=== PATIENT | female | born 1970 | race African-American/Black ===

== ENCOUNTER 2022-03-16 03:44 | Day surgery (SDC) | payer OTHER ==
[2022-03-14 12:25] VITALS: BMI 27.3
[2022-03-16] MEDS ORDERED: DEXAMETHASONE SOD PHOSPHATE 4 MG/1 ML VIAL ONE (07:18)
[2022-03-16] MEDS ORDERED: LIDOCAINE HCL/PF 2% SDV 5ML VIAL ONE (07:18)
[2022-03-16] MEDS ORDERED: ROCURONIUM BROMIDE 50 MG/5 ML SYRINGE ONE (07:19)
[2022-03-16] MEDS ORDERED: PROPOFOL 20 ML ONE (07:19)
[2022-03-16] MEDS ORDERED: MIDAZOLAM HCL 2 MG/2 ML SINGLE DOSE VIAL ONE ×2 (07:19→07:29)
[2022-03-16] MEDS ORDERED: SUCCINYLCHOLINE CHLORIDE 200 MG/10 ML SYRINGE ONE (07:22)
[2022-03-16] MEDS ORDERED: BUPIVACAINE HCL/PF 0.5% (5MG/ML) 10 ML VIAL ONE (07:30)
[2022-03-16] MEDS ORDERED: BUPIVACAINE LIPOSOME/PF (EXPAREL) 266 MG/20 ML VIAL ONE (07:30)
[2022-03-16] MEDS ORDERED: ceFAZolin SODIUM 1 GM VIAL ONE (08:10)
[2022-03-16] MEDS ORDERED: ceFAZolin SODIUM 1 GM VIAL IVPB ONE (08:10)
[2022-03-16] MEDS ORDERED: ONDANSETRON 4 MG/2 ML VIAL IVPUSH PRN ×2 (08:18→09:45)
[2022-03-16] MEDS ORDERED: HYDROmorphone HCl 2 MG/ML VIAL ONE (09:09)
[2022-03-16] MEDS ORDERED: GLYCOPYRROLATE 0.2 MG/1 ML VIAL ONE (09:11)
[2022-03-16] MEDS ORDERED: KETOROLAC TROMETHAMINE 30 MG/1 ML VIAL ONE (09:11)
[2022-03-16] MEDS ORDERED: NEOSTIGMINE METHYLSULFATE 0.5 MG/ML - 10 ML MDV ONE (09:12)
[2022-03-16] MEDS ORDERED: DOCUSATE SODIUM 100 MG CAPSULE (FP) PO PRN (09:45)
[2022-03-16] MEDS ORDERED: oxyCODONE HCL 5 MG TABLET PO PRN ×2 (09:45)
[2022-03-16] MEDS ORDERED: SIMETHICONE 80 MG TAB.CHEW (FP) PO PRN (09:45)
[2022-03-16] MEDS ORDERED: IBUPROFEN 800 MG/8 ML IJ IVPB PRN (09:45)
[2022-03-16] MEDS ORDERED: BISACODYL 5 MG TABLET.DR (FP) PO PRN (09:45)
[2022-03-16] MEDS ORDERED: ACETAMINOPHEN 325 MG TABLET (FP) PO PRN (09:45)
[2022-03-16] MEDS ORDERED: ACETAMINOPHEN 1000 MG/100 ML BAG IVPB ONE (10:19)
[2022-03-16] MEDS ORDERED: TRANEXAMIC ACID 1000 MG/10 ML VIAL IVPUSH ONE (10:19)
[2022-03-16] MEDS ORDERED: CEFAZOLIN 2 GM in DEXTROSE 5%-WATER - 100 ML IVPB ONE (10:19)
[2022-03-16] MEDS ORDERED: GABAPENTIN 300 MG CAPSULE PO ONE (10:19)
[2022-03-16] MEDS ORDERED: PHENAZOPYRIDINE HCL 100 MG TABLET (FP) PO ONE (10:19)
[2022-03-16 13:20] VITALS: RESP 18
[2022-03-16] MEDS: CEFAZOLIN 1 GM in DEXTROSE 5%-WATER - 1 GM/50 ML IVPB IVPB SCH (15:27)
[2022-03-16 18:18] LABS: HEMATOCRIT 37.9 % (32.4-45.2); HEMOGLOBIN 13.1 GM/dL (10.7-15.3); MCH 27.4 pg (25.7-33.7); MCHC 34.7 g/dl (32.0-36.0); MEAN CELL VOLUME 79.1 fl (80-96); MEAN PLT VOLUME 6.5 fl (7.5-11.1); PLATELET COUNT 275 10^3/uL (134-434); RBC 4.79 M/mm3 (3.60-5.2); RDW 13.1 % (11.6-15.6); WHITE BLOOD COUNT 6.5 K/mm3 (4.0-10.0)
[2022-03-16 18:48] LABS: CALCIUM 8.7 mg/dL (8.5-10.1)
[2022-03-17] MEDS: CEFAZOLIN 1 GM in DEXTROSE 5%-WATER - 1 GM/50 ML IVPB IVPB SCH ×2 (00:04→08:48)
[2022-03-17] MEDS ORDERED: ACETAMINOPHEN 500 MG TABLET (FP) PO SCH ×2 (05:45→06:00)
[2022-03-17 09:00] LABS: HEMATOCRIT 38.8 % (32.4-45.2); HEMOGLOBIN 13.5 GM/dL (10.7-15.3); MCH 27.7 pg (25.7-33.7); MCHC 34.8 g/dl (32.0-36.0); MEAN CELL VOLUME 79.7 fl (80-96); MEAN PLT VOLUME 7.3 fl (7.5-11.1); PLATELET COUNT 292 10^3/uL (134-434); RBC 4.87 M/mm3 (3.60-5.2); RDW 13.2 % (11.6-15.6); WHITE BLOOD COUNT 9.4 K/mm3 (4.0-10.0)
[2022-03-17 09:24] LABS: BLOOD UREA NITROGEN 10.9 mg/dL (7-18); CALCIUM 8.7 mg/dL (8.5-10.1)
[2022-03-17 09:27] LABS: CREATININE 1.1 mg/dL (0.55-1.3)
[2022-03-17] MEDS ORDERED: HYDROCHLOROTHIAZIDE 25 MG TABLET (FP) PO SCH (10:00)
[2022-03-17] MEDS ORDERED: ENOXAPARIN NA (PORCINE) 40 MG/0.4 ML DISP.SYRIN SQ SCH ×2 (10:00)
[2022-03-17] MEDS ORDERED: IBUPROFEN 600 MG TABLET (FP) PO SCH (10:00)
[2022-03-17] MEDS ORDERED: LOSARTAN POTASSIUM 50 MG TABLET PO SCH (10:00)
[2022-03-17] MEDS ORDERED: amLODIPine BESYLATE 5 MG TABLET (FP) PO SCH (10:00)
[2022-03-17] MEDS ORDERED: POTASSIUM CHLORIDE TABS 10 MEQ TABLET.ER (FP) PO SCH (10:48)
[2022-03-17] MEDS ORDERED: POTASSIUM CHLORIDE TABS 10 MEQ TABLET.ER (FP) PO ONE (10:49)
[2022-03-17] MEDS ORDERED: POTASSIUM CHLORIDE TABS 20 MEQ TABLET.ER (FP) PO ONE (11:34)
[2022-03-17 13:34] VITALS: BP 132/73; PULSE 82; TEMP 98.7
== END 2022-03-17 15:15 | disposition home or self-care (01) ==
LOC: JASUSAT 03:44 → J3W 12:24 → UNDOADMIN 12:24 → J3W 12:35 → JASUSAT 03-17 15:15
PROVIDERS: ATTEND Obstetrics & Gynecology
PROC: 0UT9FZZ Resection of Uterus, Via Natural or Artificial Opening With Percutaneous Endoscopic Assistance (ICD-10-PCS; principal; 2022-03-16 07:30)
PROC: 0UT7FZZ Resection of Bilateral Fallopian Tubes, Via Natural or Artificial Opening With Percutaneous Endoscopic Assistance (ICD-10-PCS; 2022-03-16 07:30)
DX: N92.0 Excessive and frequent menstruation with regular cycle (principal); D25.0 Submucous leiomyoma of uterus; N80.0 Endometriosis of uterus
CPT/HCPCS: 36415; 80048; 85027; 86850; 86900; 86901; 88305-TC; 88307-TC; 94010; 94760